=== PATIENT | female | born 1980 | race African-American/Black ===

== ENCOUNTER 2024-02-19 09:56 | Outpatient (CLI) | payer BC ==
[2024-02-19 11:07] LABS: BHCG - Serum Negative (NEGATIVE); Pregs Control Bar Appear? YES (CONTROL BAR)
[2024-02-19 11:08] LABS: Pregs Control Background? CLEAR/WHITE (CLR/WHITE)
[2024-02-19 11:16] LABS: Anion Gap 10 mmol/L (10-20); BUN (Urea Nitrogen) 13 mg/dL (7.0-18.7); Calc. Creatinine Clearance 0 mL/min (70-130); Calcium 8.9 mg/dL (7.8-10.44); Carbon Dioxide 22 mmol/L (22-29); Chloride 109 mmol/L (98-107); Estimated GFR 99; Glucose 81 mg/dL (70-105); Sodium 137 mmol/L (136-145)
[2024-02-19 11:18] LABS: #Basophils 0.03 10x3/uL (0.0-0.2); %Basophils 0.5 % (0.0-1.0); %Eosinophils 0.7 % (0.0-10.0); %Lymphocytes 19.1 % (21.0-51.0); %Neutrophils 72.5 % (42.0-75.0); Hematocrit 39.8 % (36.0-47.0); Hemoglobin 12.6 g/dL (12.0-16.0); Mean Corpuscular HGB CONC 31.7 g/dL (32.0-36.0); Mean Corpuscular Hemoglobin 27.9 pg (27.0-31.0); Mean Corpuscular Volume 88.1 fL (78.0-98.0); Platelet Count 185 10x3/uL (130-400); RBC Distribution Width 12.8 % (11.5-14.5); Red Blood Cell (RBC) Count 4.52 mill/uL (4.20-5.40)
== END 2024-02-19 09:57 | disposition home or self-care (01) ==
LOC: LABBT 09:56
PROVIDERS: ATTEND Specialist
DX: Z01.812 Encounter for preprocedural laboratory examination (principal); R59.9 Enlarged lymph nodes, unspecified
CPT/HCPCS: 80048; 84703; 85025

== ENCOUNTER 2024-02-22 09:01 | Day surgery (SDC) | payer BC ==
[2024-02-19 10:23] VITALS: BMI 24.2
[2024-02-22] MEDS ORDERED: Ketorolac Tromethamine 30 MG (1 mL) VIAL ONE (10:03)
[2024-02-22] MEDS ORDERED: Acetaminophen 500 MG TAB ONE (10:03)
[2024-02-22] MEDS ORDERED: CEFAZOLIN 2 GM VIAL ONE (10:03)
[2024-02-22] MEDS ORDERED: EPINEPHrine 1 MG/ML VIAL ONE (10:17)
[2024-02-22] MEDS ORDERED: Lidocaine 1% PF 5 ML VIAL ONE (10:24)
[2024-02-22] MEDS ORDERED: fentaNYL 50 mcg/mL 1 mL Vial ONE (10:24)
[2024-02-22] MEDS ORDERED: PROPOFOL 20 ML ONE (10:24)
[2024-02-22] MEDS ORDERED: Bupivacaine 0.25% HCL 30 ML VIAL ONE (10:24)
== END 2024-02-22 13:00 | disposition home or self-care (01) ==
LOC: SDC 09:01
PROVIDERS: ATTEND Specialist
PROC: 07T60ZZ Resection of Left Axillary Lymphatic, Open Approach (ICD-10-PCS; principal; 2024-02-22)
DX: C77.4 Secondary and unspecified malignant neoplasm of inguinal and lower limb lymph nodes (principal); R59.9 Enlarged lymph nodes, unspecified
CPT/HCPCS: 88184; 88307; 88341; 88342; J0171; J0665; J1885; J2704; J3010